=== PATIENT | female | born 1945 | race Caucasian/White ===

== ENCOUNTER 2019-01-07 12:43 | Emergency (ER) | payer MEDICARE, BC ==
[~2019-01-07] VITALS: Ht 160 cm; Wt 68.2 kg
[~2019-01-07 12:43] MED LIST: HYDR-4353 PO; LEVO137T24 PO; PRAM1TAB6 PO; ZOLP5TAB8 PO
[2019-01-07] MEDS ORDERED: bacitracin 15gm ointment TP ONE (13:00)
[2019-01-07] MEDS ORDERED: ondansetron 4mg rapidly disintigrating tab PO ONE (14:25)
[2019-01-07] MEDS ORDERED: sulfamethoxazole/trimethoprim DS (800/160mg) tablet PO ONE (14:25)
[2019-01-07] MEDS ORDERED: SULF1TAB49 PO (14:35)
[2019-01-07] MEDS ORDERED: HYDR-3965 PO (14:35)
[2019-01-07 14:56] VITALS: BP 144/90
[2019-01-07] MEDS ORDERED: lidocaine 1%/epinephrine 1:100,000 injection 50ml vial ONE (17:45)
== END 2019-01-07 14:58 | disposition home or self-care (01) ==
LOC: ER 12:43
DX: S91.114A Laceration without foreign body of right lesser toe(s) without damage to nail, initial encounter (principal); G89.29 Other chronic pain; Z98.890 Other specified postprocedural states; Z79.899 Other long term (current) drug therapy; W26.8XXA Contact with other sharp object(s), not elsewhere classified, initial encounter; Y93.89 Activity, other specified; Y92.89 Other specified places as the place of occurrence of the external cause; Y99.8 Other external cause status
CPT/HCPCS: 12002; 73660; 99283; J3490

== ENCOUNTER 2020-09-07 11:15 | Emergency (ER) | payer MEDICARE, BC ==
[~2020-09-07] VITALS: Ht 162.6 cm; Wt 69.5 kg
[2020-09-07 11:44] LABS: BASOPHILS # (AUTO) 0.1 X10'3 (0-0.2); BASOPHILS % (AUTO) 0.8 % (0-1); EOSINOPHILS # (AUTO) 0.1 X10'3 (0-0.9); EOSINOPHILS % (AUTO) 1.2 % (0-6); HEMATOCRIT 43.7 % (35.0-45.0); HEMOGLOBIN 14.7 g/dl (12.0-16.0); LYMPHOCYTES # (AUTO) 1.3 X10'3 (1.1-4.8); LYMPHOCYTES % (AUTO) 21.8 % (21-51); MEAN CORPUSCULAR HEMOGLOBIN 30.5 PG (27.0-31.0); MEAN CORPUSCULAR HGB CONC 33.8 g/dL (33.0-36.5); MEAN CORPUSCULAR VOLUME 90.2 FL (78-98); MEAN PLATELET VOLUME 8.8 FL (7.4-10.4); MONOCYTES # (AUTO) 0.5 X10'3 (0-0.9); MONOCYTES % (AUTO) 7.5 % (2-12); NEUTROPHILS # (AUTO) 4.2 X10'3 (1.8-7.7); NEUTROPHILS % (AUTO) 68.7 % (42-75); PLATELET COUNT 283 X10'3 (140-440); RED BLOOD COUNT 4.84 X10'6 (4.20-5.60); WHITE BLOOD COUNT 6.1 X10'3 (4.5-11.0)
[2020-09-07 11:59] LABS: ALANINE AMINOTRANSFERASE 21 U/L (12-78); ALBUMIN 4.4 G/DL (3.4-5.0); ALBUMIN/GLOBULIN RATIO 1.2 (1.1-1.5); ALKALINE PHOSPHATASE 61 IU/L (46-116); AMYLASE 51 U/L (25-115); ANION GAP 13 (8-16); ASPARTATE AMINO TRANSFERASE 20 U/L (10-37); BILIRUBIN,TOTAL 0.8 MG/DL (0.1-1.0); BLOOD UREA NITROGEN 31 MG/DL (7-18); BUN/CREATININE RATIO 28.2 (6.6-38.0); CALCIUM 9.2 MG/DL (8.5-10.1); CHLORIDE 103 MMOL/L (99-107); GLUCOSE 117 MG/DL (70-104); LIPASE 104 U/L (73-393); POTASSIUM 4.1 MMOL/L (3.5-5.1); SODIUM 141 MMOL/L (135-145); TOTAL CARBON DIOXIDE 25.5 MMOL/L (24-32); eGFR 49 ML/MIN
[2020-09-07] MEDS ORDERED: ONDA4TAB6 PO (12:51)
[2020-09-07] MEDS ORDERED: PANT-47 PO (12:51)
[2020-09-07 13:47] LABS: TROPONIN I < 0.04 NG/ML (0.0-0.05)
[2020-09-07 14:20] VITALS: BP 128/84
== END 2020-09-07 14:18 | disposition home or self-care (01) ==
LOC: ER 11:16
DX: K27.7 Chronic peptic ulcer, site unspecified, without hemorrhage or perforation (principal); R10.13 Epigastric pain; R11.2 Nausea with vomiting, unspecified; G89.29 Other chronic pain; Z98.890 Other specified postprocedural states; Z79.899 Other long term (current) drug therapy
CPT/HCPCS: 36415; 71045; 80053; 82150; 83690; 84484; 85025; 93005; 99285